=== PATIENT | male | born 1955 ===

== ENCOUNTER 2022-03-20 11:11 | Day surgery (SDC) | payer MEDICARE, MEDICAID ==
[~2022-03-20] VITALS: Ht 172.7 cm; Wt 69.0 kg
[2022-03-20 12:04] VITALS: BP 185/99; PULSE 65; TEMP 97.5
[2022-03-20] MEDS ORDERED: ROXICODONE30 MG PO (12:12)
[2022-03-20] MEDS ORDERED: CYMBALTA 60MG60 MG PO (12:12)
[2022-03-20] MEDS ORDERED: PROTONIX 40MG T40 MG PO (12:12)
[2022-03-20] MEDS ORDERED: TOPROL XL 25MG25 MG PO (12:13)
[2022-03-20 13:15] VITALS: BP 151/90; PULSE 62; TEMP 97.4
[2022-03-20 13:30] VITALS: BP 152/96; PULSE 60
[2022-03-20 13:38] VITALS: BP 156/88; PULSE 62
--- NOTE | 2022-03-20 13:40 | NUR ---
1315 RETURNS TO ROOM 8 PER CART. AWAKE, ALERT. AMBULATES TO RECLINER WITH STANDBY ASSIST. RESP CLEAR, UNLABORED. DENIES NAUSEA, ABD PAIN OR DYSPHAGIA. VITAL SIGNS OBTAINED. CALL LIGHT AT SIDE. 1319 DR. REA HERE TO VISIT WITH PATIENT. 1325 TOLERATES PO WATER WITHOUT NAUSEA. SWALLOWS WITHOUT DIFFICULTY 1330 DISCHARGE INSTRUCTIONS REVIEWED. PATIENT VERBALIZES UNDERSTANDING. COPY PROVIDED IN DISCHARGE FOLDER.
== END 2022-03-20 13:40 | disposition home or self-care (01) ==
LOC: SDCO 11:11
DX: K21.9 Gastro-esophageal reflux disease without esophagitis (principal)
CPT/HCPCS: J2704; J7120

== ENCOUNTER 2022-05-22 14:16 | Emergency (ER) | payer MEDICARE, MEDICAID ==
[~2022-05-22] VITALS: Ht 172.7 cm; Wt 72.3 kg
[~2022-05-22 14:16] MED LIST: CYMBALTA 60MG60 MG PO; PROTONIX 40MG T40 MG PO; ROXICODONE30 MG PO; TOPROL XL 25MG25 MG PO
[2022-05-22 14:35] VITALS: TEMP 98.3
[2022-05-22 15:34] LABS: INR 1.1 (0.8-3.0); PROTHROMBIN TIME 12.4 SECONDS (9.7-12.8)
[2022-05-22 15:39] LABS: BASO % 0.5 % (0.0-2.0); EOS # 0.2 K/mm3 (0.0-0.7); EOS % 2.6 % (0.0-4.0); GRAN # 4.7 K/mm3 (1.4-6.5); GRAN % 63.2 % (42.2-75.2); HEMATOCRIT 37.7 % (42.0-52.0); HEMOGLOBIN 13.1 g/dl (13.5-18.0); LYMPH # 1.6 K/mm3 (1.2-3.4); LYMPH % 21.6 % (20.0-51.0); MEAN CELL VOLUME 88 fl (80.0-100.0); MEAN CORPUSCULAR HEMOGLOBIN 30 pg (27-31); MEAN CORPUSCULAR HGB CONC 35 g/dl (33.0-37.0); MEAN PLATELET VOLUME 10.4 fl (7.4-10.4); MONO # 0.9 K/mm3 (0.1-0.6); MONO % 11.8 % (1.7-9.3); PLATELET COUNT 239 K/mm3 (130-400); RED BLOOD COUNT 4.31 M/mm3 (4.20-5.60); REDCELL DISTRIBUTION WIDTH-CV 13.5 % (11.5-14.5)
[2022-05-22 15:46] LABS: ALBUMIN 3.9 gm/dL (3.4-4.8); BILIRUBIN,TOTAL 0.4 mg/dL (0.2-1.2); CALCIUM 8.8 mg/dL (8.4-10.2); CREATININE, serum 0.77 mg/dL (0.72-1.25); TOTAL PROTEIN 6.6 gm/dL (6.2-8.1)
[2022-05-22] MEDS ORDERED: SUDAFED60 MG PO (19:11)
[2022-05-22 19:31] VITALS: BP 143/83; PULSE 73
== END 2022-05-22 19:31 | disposition home or self-care (01) ==
LOC: COL.ER 14:16
PROVIDERS: Family Medicine
DX: N48.30 Priapism, unspecified (principal); Z28.310 Unvaccinated for COVID-19
CPT/HCPCS: J2370